=== PATIENT | female | born 1980 | race Caucasian/White ===

== ENCOUNTER 2023-05-18 09:33 | Outpatient (CLI) | payer MEDICAID, SELFPAY | END 2023-05-18 09:34 | disposition home or self-care (01) | LOC: NFLDREF 09:38 | PROVIDERS: PCP Physician Assistant; Visit Provider Physician Assistant | DX: Z01.419 Encounter for gynecological examination (general) (routine) without abnormal findings (principal); Z13.6 Encounter for screening for cardiovascular disorders; Z13.1 Encounter for screening for diabetes mellitus | CPT/HCPCS: 80061; 82947 ==

== ENCOUNTER 2024-08-20 13:30 | Outpatient (CLI) | payer MEDICAID, SELFPAY ==
[2024-08-23 15:03] LABS: HPV Source Cervical; HPV, High Risk by TMA Not Detected
== END 2024-08-20 13:31 | disposition home or self-care (01) ==
PROVIDERS: Visit Provider Physician Assistant
DX: Z01.419 Encounter for gynecological examination (general) (routine) without abnormal findings (principal); Z12.4 Encounter for screening for malignant neoplasm of cervix; Z13.6 Encounter for screening for cardiovascular disorders; Z13.1 Encounter for screening for diabetes mellitus; Z13.29 Encounter for screening for other suspected endocrine disorder
CPT/HCPCS: 80061; 82947; 84443; 87624; 87625; 88141; 88142

== ENCOUNTER 2024-10-30 10:01 | Outpatient (CLI) | payer MEDICAID, SELFPAY ==
--- NOTE | 2024-10-30 10:15 | CRLHL7_ITS ---
For Patients: As a result of the Century Cures Act, medical imaging exams and procedure reports are released immediately into your electronic medical record. You may view this report before your referring provider. If you have questions, please contact your health care provider. BILATERAL SCREENING MAMMOGRAM WITH COMPUTER-AIDED DETECTION AND TOMOSYNTHESIS TECHNIQUE: CC and MLO views were obtained. These mammographic images have been obtained using full-field digital technique. These mammographic images were interpreted with the benefit of computer-aided detection. Breast Tomosynthesis was used in this interpretation. COMPARISON FILM: Baseline. FINDINGS: There are scattered areas of fibroglandular density. IMPRESSION: There is no radiographic evidence for malignancy. ASSESSMENT: BI-RADS Category 1: Negative RECOMMENDATION: Routine screening mammogram in 1 year. A lay language report of this examination will be provided to the patient. Fazal Monterroso M.D. Diagnostic Radiologist [email or web address] SP/Dictated by: Fazal Monterroso MD @ 10/30/2024 12:51:00 PM (Electronically Signed)
== END 2024-10-30 10:02 | disposition home or self-care (01) ==
LOC: MAMMO 10:02
PROVIDERS: Visit Provider Physician Assistant
DX: Z12.31 Encounter for screening mammogram for malignant neoplasm of breast (principal)
CPT/HCPCS: 77063; 77067

== ENCOUNTER 2025-10-02 10:48 | Outpatient (CLI) | payer MEDICAID, SELFPAY ==
[2025-10-02 15:00] LABS: Bacterial Vaginosis* Negative (Negative); Candida glab/krus NOT DETECTED (No Detected)
[2025-10-02 15:29] LABS: Chlamydia DNA Amplified* NOT DETECTED (No Detected); GC DNA Amplified* NOT DETECTED (No Detected)
== END 2025-10-02 10:49 | disposition home or self-care (01) ==
PROVIDERS: Visit Provider Registered Nurse
DX: Z11.3 Encounter for screening for infections with a predominantly sexual mode of transmission (principal); N92.0 Excessive and frequent menstruation with regular cycle
CPT/HCPCS: 81513; 84439; 84443; 86703; 86780; 86803; 87340; 87481; 87491; 87591; 87661